=== PATIENT | male | born 1945 | race Caucasian/White ===

== ENCOUNTER → 2017-07-17 | Outpatient (CLI) | payer MEDICARE, OTHER ==
--- NOTE | 2017-07-17 12:15 | Diagnostic Imaging Report ---
Indication: Lower respiratory infection x1 month. PA and lateral chest Heart size and pulmonary vascularity are normal. Lungs are clear. There are no effusions or pneumothoraces. Impression: Negative chest. Dictated by: Dictated on workstation # [id number]
== END ==
LOC: RAD 11:04
PROVIDERS: ATTEND Family Medicine
DX: J22 Unspecified acute lower respiratory infection (principal)
CPT/HCPCS: 71046

== ENCOUNTER → 2019-01-29 | Outpatient (CLI) | payer MEDICARE, OTHER ==
[2019-01-29 10:53] LABS: BILIRUBIN,URINE NEGATIVE (NEGATIVE); CLARITY,URINE CLEAR; COLOR,URINE YELLOW; GLUCOSE, URINE (UA) NEGATIVE (NEGATIVE); KETONES,URINE NEGATIVE (NEGATIVE); LEUKOCYTE ESTERASE ,URINE NEGATIVE (NEGATIVE); NITRITE,URINE NEGATIVE (NEGATIVE); PROTEIN,URINE NEGATIVE (NEGATIVE)
[2019-01-29 10:59] LABS: BACTERIA,URINE NEGATIVE /HPF; WBC,URINE RARE /HPF
== END ==
LOC: LAB 10:08
PROVIDERS: ATTEND Family Medicine
DX: R31.9 Hematuria, unspecified (principal)
CPT/HCPCS: 81000

== ENCOUNTER → 2020-04-11 | Outpatient (CLI) | payer MEDICARE, OTHER ==
[2020-04-11 11:07] LABS: HEMOGLOBIN 15.8 g/dL (13.3-17.7); MEAN PLATELET VOLUME 10.7 fL (9.0-12.2); WHITE BLOOD COUNT 9.7 10^3/uL (4.3-11.0)
[2020-04-11 11:28] LABS: ALANINE AMINOTRANSFERASE 22 U/L (0-55); ALBUMIN 4.4 GM/DL (3.2-4.5); ALKALINE PHOSPHATASE 63 U/L (40-136); BILIRUBIN,TOTAL 0.8 MG/DL (0.1-1.0); BUN/CREATININE RATIO 11; CALCIUM 9.6 MG/DL (8.5-10.1); CARBON DIOXIDE 25 MMOL/L (21-32); CHLORIDE 92 MMOL/L (98-107); CREATININE SERUM 1.13 MG/DL (0.60-1.30); GFR ESTIMATED > 60; GLUCOSE 96 MG/DL (70-105); POTASSIUM 3.9 MMOL/L (3.6-5.0); SODIUM 128 MMOL/L (135-145); TOTAL PROTEIN 7.9 GM/DL (6.4-8.2)
--- NOTE | 2020-04-11 13:43 | Diagnostic Imaging Report ---
INDICATION: Cough and wheezing. Comparison with 07/17/2017. FINDINGS: PA and lateral chest. The lungs are well-aerated with mild air trapping bilaterally. No infiltrates have developed. No pneumothorax. No pleural effusion. The heart is not enlarged. No bony abnormalities. IMPRESSION: Mild hyperaeration noted bilaterally otherwise normal chest. Dictated by: Dictated on workstation # [id number]
== END ==
LOC: RAD 10:44
PROVIDERS: ATTEND Family Medicine
DX: J45.909 Unspecified asthma, uncomplicated (principal)
CPT/HCPCS: 36415; 71046; 80053; 84443; 85027

== ENCOUNTER → 2022-01-09 | Outpatient (CLI) | payer MEDICARE, OTHER ==
--- NOTE | 2022-01-09 19:35 | Diagnostic Imaging Report ---
PROCEDURE: CT neck soft tissue without contrast. TECHNIQUE: Multiple contiguous axial images were obtained through the neck without the use of intravenous contrast. Auto Exposure Controls were utilized during the CT exam to meet ALARA standards for radiation dose reduction. INDICATION: Enlarged lymph node behind left ear. No comparison available. FINDINGS: A metallic marker was placed at the site of the patient's reported palpable abnormality. This is just posterior and inferior to the left external ear. This overlies multiple apparent enlarged intraparotid lymph nodes with the largest measuring 1.5 cm. In addition, however, to the enlarged intraparotid lymph nodes there is also extensive lymphadenopathy demonstrated throughout the neck with bilateral cervical lymphadenopathy demonstrated at level 1, level 2, level 3, level 4 and level 5. The findings are highly suspect for a lymphoproliferative disorder such as lymphoma. The visualized portion of the upper chest additionally demonstrates some prominent superior mediastinal lymph nodes and bilateral axillary lymphadenopathy. As transportation services representative measurements, the largest measured lymph node on the right at the level IIb lymph node measuring 2 cm in length. The largest on the left is a inferior level 5 lymph node measuring 2.1 cm. Large bilateral level 1 A and 1 B submandibular lymph nodes also present. The visualized intracranial contents demonstrate no mass effect. The orbits are unremarkable. There is moderate mucosal thickening in the left maxillary sinus. The mastoids and the middle ears appear clear. The posterior nasopharynx and oropharynx are symmetric. There is no displacement of the parapharyngeal fat planes. Base of the tongue unremarkable. There is no thickening of the epiglottis. The vallecula and piriform sinuses are aerated. There is no abnormal process in the prevertebral retropharyngeal space. The vocal folds appear symmetric. The lung apices are clear. Cervical spine demonstrates normal alignment. There are mild endplate changes but no suspicious marrow replacing lesion. IMPRESSION: 1. Extensive bilateral cervical lymphadenopathy is demonstrated throughout the neck at essentially all the major cervical juliann stations. There additionally appears to be adenopathy in the upper mediastinum and both of the axilla. The findings are highly suspect for a lymphoproliferative disorder such as lymphoma. Metastatic disease felt less likely. 2. Appropriate symmetry of the aerodigestive tract. Dictated by: Dictated on workstation # [id number]
== END ==
LOC: RAD 08:49
PROVIDERS: ATTEND Family Medicine
DX: R59.0 Localized enlarged lymph nodes (principal)
CPT/HCPCS: 70490

== ENCOUNTER → 2022-01-11 | Outpatient (CLI) | payer MEDICARE, OTHER ==
[2022-01-11 11:27] LABS: POTASSIUM 4.1 MMOL/L (3.6-5.0)
[2022-01-11 11:28] LABS: CALCIUM 9.4 MG/DL (8.5-10.1)
[2022-01-11 11:33] LABS: CREATININE SERUM 0.92 MG/DL (0.60-1.30)
== END ==
LOC: LAB 10:39
PROVIDERS: ATTEND Family Medicine
DX: N28.9 Disorder of kidney and ureter, unspecified (principal)
CPT/HCPCS: 36415; 80048

== ENCOUNTER → 2022-01-16 | Outpatient (CLI) | payer MEDICARE, OTHER ==
[~2022-01-16] MED LIST: CATHETER FLUSH 10 ML SYR IV PRN; HOLD METFORMIN - RECEIVED CONTRAST 20 ML VIAL IV SCH; IOHEXOL 350 MG/ML 100 ML (OMNIPAQUE 350) VIAL IV ONE; NS 100 ML (IVPB) BAG IV ONE
--- NOTE | 2022-01-16 09:59 | Diagnostic Imaging Report ---
EXAMINATION: CT chest, abdomen and pelvis with intravenous contrast. TECHNIQUE: Multiple contiguous axial images were obtained through the chest, abdomen and pelvis after the uneventful administration of intravenous contrast. All CT scans use one or more of the following dose optimizing techniques: automated exposure control, MA and/or KvP adjustment based on patient size and exam type or iterative reconstruction. HISTORY: Lymphadenopathy in the neck. Concern for malignancy. Prior left inguinal hernia repair. COMPARISON: None available. FINDINGS: CT CHEST: The heart size is within normal limits. No pericardial effusion is present. There is calcified aortic and coronary atherosclerotic plaque without aneurysm. Lymphadenopathy is seen in the bilateral axilla, bilateral hilum, and mediastinum. A marker lymph node in the right axilla measures 3.0 x 2.6 cm and within the left axilla 4.2 x 2.3 cm. A marker lymph node in the right paratracheal station measures 1.9 x 1.6 cm. Marker nodule in the right hilum measures 3.9 x 2.3 cm and in the left measures 2.1 x 2.1 cm. Nodules are seen in the right upper lobe measuring up to 0.8 cm. These are located along the fissure and are most suggestive of intrapulmonary lymph nodes. There are no focal areas of consolidation. No central endobronchial obstructing lesions are identified. There are no pleural effusions or pneumothorax. Age-indeterminate height loss is visualized in the T5-T8 vertebral bodies. There is also height loss in the superior endplate of T12. Chronic healed rib fractures are seen in the right in the 9th and 10th right ribs. CT ABDOMEN AND PELVIS: Conglomeration of lymphadenopathy is seen throughout the retroperitoneum. Lymphadenopathy is also seen in the upper abdomen, with the largest lymph node in the umair hepatis measuring 4.0 x 3.2 cm. Inguinal lymphadenopathy is also noted. The liver, spleen, pancreas, adrenal glands, and kidneys have a normal appearance. Gallstone is visualized in the neck of the gallbladder. No CT evidence of acute cholecystitis. The bowel loops are nondilated. The appendix is visualized in the right lower quadrant and has a normal appearance. There is no free fluid or free air. The osseous structures demonstrate no acute abnormalities. There is calcified aortic and iliac atherosclerotic plaque without aneurysm. Ureters and bladder have a normal appearance. IMPRESSION: 1. Pathologically enlarged lymphadenopathy in the chest, abdomen and pelvis. Findings are concerning for malignancy such as lymphoma. Recommend correlation with patient history and follow-up as indicated. 2. Age-indeterminate height loss in the T5-T8 vertebral bodies and T12 vertebral body. These are favored to be chronic. Recommend correlation with patient symptoms and physical exam. If indicated, MRI of the thoracic spine may be considered to further evaluate. 3. Cholelithiasis without CT evidence of acute cholecystitis. Dictated by: Dictated on workstation # [id number]
== END ==
LOC: RAD 08:42
PROVIDERS: ATTEND Family Medicine
DX: R59.0 Localized enlarged lymph nodes (principal); K80.20 Calculus of gallbladder without cholecystitis without obstruction
CPT/HCPCS: 71260; 74177

== ENCOUNTER → 2022-01-22 | Day surgery (SDC) | payer MEDICARE, OTHER ==
[~2022-01-22] MED LIST changes: -CATHETER FLUSH 10 ML SYR IV PRN; -HOLD METFORMIN - RECEIVED CONTRAST 20 ML VIAL IV SCH; -IOHEXOL 350 MG/ML 100 ML (OMNIPAQUE 350) VIAL IV ONE; +LIDOCAINE 1% INJ 30 ML (XYLOCAINE) VIAL INJ ONE; -NS 100 ML (IVPB) BAG IV ONE
--- NOTE | 2022-01-22 10:14 | Diagnostic Imaging Report ---
INDICATION: Lymphadenopathy. Patient presents for ultrasound-guided biopsy. Patient brought to the procedure and placed on table in the supine position. Ultrasound imaging of the left axilla was performed to evaluate appropriate entry site. Left axilla was then prepped and draped in usual sterile fashion. Small amount of 1% lidocaine was utilized for local anesthesia. A total of 5 core biopsies were obtained of an enlarged left axillary lymph node utilizing 14-gauge Achieve needle. Hemostasis was obtained using manual compression. Patient tolerated the procedure well and left the department in stable condition. IMPRESSION: Successful ultrasound guided core biopsy of enlarged left axillary lymph node. Pathology results are currently pending. Dictated by: Dictated on workstation # [id number]
== END ==
LOC: RAD 09:00
PROVIDERS: ATTEND Family Medicine
DX: C83.04 Small cell B-cell lymphoma, lymph nodes of axilla and upper limb (principal)
CPT/HCPCS: 76942; 88184; 88185; 88307; 88341; 88342; 88360

== ENCOUNTER → 2022-01-31 | Outpatient (CLI) | payer MEDICARE ==
[~2022-01-31] VITALS: Ht 177.8 cm; Wt 81.8 kg
[~2022-01-31] MED LIST changes: +ACHD5005 PO; +BENR30SY SQ; +BUDE10.2 IH; +HYDR12.56 PO; -LIDOCAINE 1% INJ 30 ML (XYLOCAINE) VIAL INJ ONE; +METO100T12 PO; +MONT10TA21 PO; +RT-ALBUINH INH; +TMSL.4C PO
== END | disposition home or self-care (01) ==
LOC: PREOP 05:35
PROVIDERS: ATTEND Surgery
DX: Z01.818 Encounter for other preprocedural examination (principal)

== ENCOUNTER 2022-02-01 10:20 | Day surgery (SDC) | payer MEDICARE, OTHER ==
[2022-02-01] VITALS (11 sets, daily range): BP systolic 105–170; BP diastolic 66–91
[~2022-02-01] VITALS: Ht 177.8 cm; Wt 81.8 kg
[~2022-02-01 10:20] MED LIST changes: -ACHD5005 PO
[2022-02-01] MEDS ORDERED: ceFAZolin INJECTION 2,000 MG in NS (IVPB) 50 ML IV ONE (10:45)
--- NOTE | 2022-02-01 11:25 | Progress Note-Pre Operative ---
Pre-Operative Progress Note Date of Available H&P: Jan 29, 2022 Date H&P Reviewed: Feb 01, 2022 Time H&P Reviewed: 11:25 History & Physical: H&P Reviewed, Patient Examed, No changes noted Pre-Operative Diagnosis: b/l inguinal and axillary lymphadenopathy VIRGINIA BENDER DO Feb 01, 2022 11:25
[2022-02-01] MEDS ORDERED: LACTATED RINGERS 1,000 ML IV PRN (11:30)
[2022-02-01] MEDS ORDERED: LIDOCAINE/EPI 1%-1:100,000 (XYLOCAINE) 30ML ONE (12:30)
[2022-02-01] MEDS ORDERED: proPOfol 200 MG/20 ML (DIPRIVAN) VIAL IV ONE (12:32)
[2022-02-01] MEDS ORDERED: ONDANSETRON 4 MG/2 ML (SDV) Z0FRAN ONE (12:32)
[2022-02-01] MEDS ORDERED: fentaNYL INJ 100 MCG/2 ML AMP ONE (12:32)
[2022-02-01] MEDS ORDERED: SEVOFLURANE (ULTANE) 15 ML INHAL SOLN ONE ×2 (12:32→13:11)
[2022-02-01] MEDS ORDERED: LIDOCAINE PF 2% 5 ML (XYLOCAINE) VIAL ONE (12:32)
[2022-02-01] MEDS ORDERED: MIDAZOLAM 2 MG/2 ML (VERSED) VIAL ONE (12:32)
[2022-02-01] MEDS ORDERED: BUP/EPI 0.25% 1:200,000 (MARCAINE) 30 ML VIAL ONE (12:37)
[2022-02-01] MEDS ORDERED: BUP/EPI 0.25% 1:200,000 (MARCAINE) 30 ML VIAL INJ ONE (13:12)
[2022-02-01] MEDS ORDERED: ACHD5005 PO (13:23)
--- NOTE | 2022-02-01 13:24 | Discharge Inst-Simple/Standard ---
Discharge Inst-Standard Discharge Medications New, Converted or Re-Newed RX: Transmitted to Pharmacy Patient Instructions/Follow Up Plan of Care/Instructions/FU: 2 weeks Yair Activity as Tolerated: No Discharge Diet: Regular Diet Other Inst to Patient Follow up Appt: Make appointment for 2 week. Instructions: No lifting greater than 10 pounds. No strenuous activity. May shower in 24 hours, no tub bath or soaking. Use incentive spirometer at home as directed. No Smoking Skin/Wound Care: You have special glue over your incision that will fall off on it's own. Symptoms to Report: Appetite Changes, Extremity Discoloration, Numbness/Tingling, Swelling Increased, Bleeding Excessive, Eyesight Changes, Pain Increased, Urine Color Change, Constipation(Persistent), Fever over 101 degree F, Pain/Pressure in chest, Urinating Difficulty, Cough Up/Vomit Blood, Heart Beat Irreg/Pounding, Pain/Pressure in jaw, Vaginal Bleeding Increase, Cramps in feet or legs, Lightheadedness, Pain/Pressure in shoulder, Diarrhea(Persistent), Memory Changes Suddenly, Questions/Concerns, Weight gain consecutive days, Dizziness/Fainting, Nausea/Vomiting, Shortness of Breath, Weight gain over 2 pounds If questions or concerns contact your physician Or seek help at emergency department. VIRGINIA BENDER DO Feb 01, 2022 13:24
[2022-02-01] MEDS ORDERED: ONDANSETRON 4 MG/2 ML (SDV) Z0FRAN IVP PRN (13:30)
[2022-02-01] MEDS ORDERED: fentaNYL INJ 100 MCG/2 ML AMP IVP ONE (13:30)
--- NOTE | 2022-02-01 13:30 | Anesthesia-General Post-Op ---
General Patient Condition Mental Status/LOC: Same as Preop Cardiovascular: Satisfactory Nausea/Vomiting: Absent Respiratory: Satisfactory Pain: Controlled Complications: Absent Post Op Complications Complications None Follow Up Care/Instructions Patient Instructions None needed. Anesthesia/Patient Condition Patient Condition Patient is doing well, no complaints, stable vital signs, no apparent adverse anesthesia problems. No complications reported per nursing. OMAYRA STEVENS CRNA Feb 01, 2022 13:30
--- NOTE | 2022-02-01 23:10 | OPERATIVE REPORT ---
DATE OF SERVICE: 02/01/2022 PREOPERATIVE DIAGNOSIS: Bilateral inguinal and axillary lymphadenopathy. POSTOPERATIVE DIAGNOSIS: Bilateral inguinal and axillary lymphadenopathy. PROCEDURE: Excision of left groin mass. SURGEON: Virginia Mazariegos DO ANESTHESIA: General. ESTIMATED BLOOD LOSS: Minimal. COMPLICATIONS: None. INDICATIONS: The patient is a 76-year-old male with bilateral inguinal and axillary lymphadenopathy. Large palpable mass noted in the left groin, which he was discussed excising for pathology. He understands risks and benefits and wishes to proceed. Consent was signed and in chart. DESCRIPTION OF PROCEDURE: The patient was taken to the operating suite, prepped and draped in sterile fashion. Timeout was performed. Local anesthetic was infiltrated above the palpable mass. A 15 blade scalpel was used to make a skin incision. Cautery was used to dissect down through subcutaneous tissues down through Camper's and Wayne's fascia. A mass was encountered. This was then both bluntly and cautery dissected around until completely removed. This was sent for fresh specimen. Wound was then irrigated and hemostasis was achieved. Wayne's was then closed using 3-0 Vicryl close the subcutaneous tissue and 4-0 Monocryl was used to close the skin. The area was then washed and dried and skin Affix was placed on the incision. The patient tolerated the procedure well without any complications taken to recovery room in stable condition. Job ID: [id number] DocumentID: [id number] Dictated Date: 02/01/2022 21:26:25 Engineering Production Worker Date: 02/01/2022 23:08:00 Dictated By: VIRGINIA MAZARIEGOS DO
== END 2022-02-01 15:23 ==
LOC: SDC 10:20
PROVIDERS: ATTEND Surgery
DX: C85.85 Other specified types of non-Hodgkin lymphoma, lymph nodes of inguinal region and lower limb (principal); R59.0 Localized enlarged lymph nodes; Z87.891 Personal history of nicotine dependence
CPT/HCPCS: 87081

== ENCOUNTER → 2022-04-02 | Outpatient (CLI) | payer MEDICARE, OTHER ==
[~2022-04-02] MED LIST changes: +ACHD5005 PO
--- NOTE | 2022-04-02 11:56 | Diagnostic Imaging Report ---
INDICATION: Cough and congestion. COMPARISON: 04/11/2020 FINDINGS: Frontal and lateral radiographic views of the chest were obtained. Evaluation is degraded by over penetration, but lungs are grossly clear. There is no large effusion or pneumothorax. Cardiac silhouette and pulmonary vasculature are within normal limits. Osseous structures show no gross acute abnormalities. IMPRESSION:. No acute cardiopulmonary process with limitations as above. Dictated by: Dictated on workstation # [id number]
== END ==
LOC: RAD 10:50
PROVIDERS: ATTEND Family Medicine
DX: R05.9 Cough, unspecified (principal); R09.81 Nasal congestion; R59.0 Localized enlarged lymph nodes
CPT/HCPCS: 71046

== ENCOUNTER 2022-04-09 10:23 | Emergency (ER) | payer MEDICARE, OTHER ==
[~2022-04-09] VITALS: Ht 177 cm; Wt 81.0 kg
--- NOTE | 2022-04-09 10:59 | ED General ---
General Chief Complaint: - Reproductive Stated Complaint: BLADDER ISSUES Nursing Triage Note: Pt reports R sided flank pain and decreased urination. Pt also tested positive for COVID 1 week ago Source of Information: Patient Exam Limitations: No Limitations History of Present Illness Date Seen by Provider: Apr 09, 2022 Time Seen by Provider: 10:59 Initial Comments Patient is a 75yo male who presents to the ER with a complaint of decreased urinary out put over the last 24 hours. He states he was diagnosed with Covid a week ago and has been feeling "really bad", He states that he has had decreased appetite, and overall oral intake the last week. Dry non productive cough. A little light headed with position change but not severe. He attributes this to his age. No high fevers. no diarrhea. He's had some left groin discomfort. He was diagnosed with Lymphoma in January of 2022 and is under the care of Dr Ngo. He states he was on an oral chemo pill for a while and has been trying to get started on an IV chemo but his WBC has been low. He went in to see Dr Onofre this morning due to his "trouble urinating" and Dr Onofre sent him in to us for further eval. Timing/Duration: 3-4 Days Severity: Mild Associated Systoms: Loss of Appetite Allergies and Home Medications Allergies Coded Allergies: No Known Drug Allergies (Unverified , 02/01/22) Patient Home Medication List Home Medication List Reviewed: Yes Albuterol Sulfate (Ventolin Hfa) 1 Puff Puff, 2 PUFF INH Q4H, (Reported) Entered as Reported by: CLAIR RGEGG on 01/31/22 1057 Benralizumab (Fasenra) 30 Mg/Ml Syringe, 30 MG SQ Q8WK, (Reported) Entered as Reported by: CLAIR GREGG on 01/31/22 1057 Budesonide/Formoterol Fumarate (Symbicort 160-4.5 Mcg Inhaler) 160 Mcg-4.5 Mcg/Actuation Hfa.aer.ad, 2 PUFF IH BID, (Reported) Entered as Reported by: CLAIR GREGG on 01/31/22 1057 Hydrochlorothiazide (Hydrochlorothiazide) 12.5 Mg Tablet, 12.5 MG PO DAILY, ( Reported) Entered as Reported by: CLAIR GREGG on 01/31/22 1057 Hydrocodone/Acetaminophen (Hydrocodone-Acetamin 5-325 mg) 5 Mg-325 Mg Tablet, 1 EACH PO Q4H PRN for PAIN-MODERATE (5-7) Prescribed by: VIRGINIA BENDER on 02/01/22 1324 Metoprolol Tartrate (Metoprolol Tartrate) 100 Mg Tablet, 100 MG PO DAILY, (Reported) Entered as Reported by: CLAIR GREGG on 01/31/22 105 Montelukast Sodium (Singulair) 10 Mg Tablet, 10 MG PO DAILY, (Reported) Entered as Reported by: CLAIR GREGG on 01/31/22 105 Tamsulosin HCl (Flomax) 0.4 Mg Cap, 0.4 MG PO DAILY, (Reported) Entered as Reported by: CLAIR GREGG on 01/31/22 105 Review of Systems Review of Systems Constitutional: see HPI EENTM: no symptoms reported Respiratory: cough; No phlegm Cardiovascular: no symptoms reported Gastrointestinal: other (left groin pain) Genitourinary: decreased output Musculoskeletal: no symptoms reported Skin: no symptoms reported Psychiatric/Neurological: No Symptoms Reported All Other Systems Reviewed Negative Unless Noted: Yes Past Elcwrpm-Iemske-Hxkdca Hx Immunizations Up To Date First/Initial COVID19 Vaccinat: 2020 Second COVID19 Vaccination Jhonny: 2020 Third COVID19 Vaccination Date: 2021 Seasonal Allergies Seasonal Allergies: Yes Past Medical History Surgeries: Yes (HERNIA, "STOMACH REPAIR"FOR BLEEDING) Respiratory: Yes Asthma Currently Using CPAP: No Currently Using BIPAP: No Cardiac: Yes Hypertension Neurological: No Genitourinary: Yes Prostate Problems Gastrointestinal: No Musculoskeletal: Yes Arthritis Endocrine: No HEENT: Yes (READERS) Cancer: No (ENLARGED LYMPH NODE) Psychosocial: No Integumentary: No Blood Disorders: No Physical Exam Vital Signs Vital Signs - First Documented 04/09/22 04/09/22 10:40 10:45 Temp 37.3 Pulse 112 Resp 20 B/P (MAP) 136/90 (105) Pulse Ox 96 O2 Delivery Room Air Capillary Refill : Less Than 3 Seconds Height, Weight, BMI Height: '" Weight: lbs. oz. kg; 25.00 BMI Method: General Appearance: No Apparent Distress, WD/WN Eyes: Bilateral Eye Normal Inspection, Bilateral Eye PERRL, Bilateral Eye EOMI HEENT: Other (+ upper cervical lymphadenopathy) Neck: Normal Inspection Respiratory: Lungs Clear, Normal Breath Sounds, No Accessory Muscle Use, No Respiratory Distress Cardiovascular: Regular Rate, Rhythm, Tachycardia (110 HR) Gastrointestinal: Normal Bowel Sounds, Soft, Other (large tender left groin node, no erythena/fluctuance) Extremity: Normal Capillary Refill, Normal Range of Motion, Non Tender, No Calf Tenderness, No Pedal Edema Neurologic/Psychiatric: Alert, Oriented x3, No Motor/Sensory Deficits, Normal Mood/Affect Skin: Normal Color, Warm/Dry Progress/Results/Core Measures Suspected Sepsis SIRS Temperature: Pulse: 112 Respiratory Rate: 20 Laboratory Tests 04/09/22 10:50: White Blood Count 1.8L Blood Pressure 136 /90 Mean: 105 Laboratory Tests 04/09/22 10:50: Creatinine 1.15, Platelet Count 137 Results/Orders Lab Results Laboratory Tests Test 04/09/22 10:50 04/09/22 14:00 Range/Units White Blood Count 1.8 L 4.3-11.0 10^3/uL Red Blood Count 2.79 L 4.30-5.52 10^6/uL Hemoglobin 10.7 L 13.3-17.7 g/dL Hematocrit 29 L 40-54 % Mean Corpuscular Volume 105 H 80-99 fL Mean Corpuscular Hemoglobin 38 H 25-34 pg Mean Corpuscular Hemoglobin Concent 37 H 32-36 g/dL Red Cell Distribution Width 13.4 10.0-14.5 % Platelet Count 137 130-400 10^3/uL Mean Platelet Volume 9.4 9.0-12.2 fL Immature Granulocyte % (Auto) 1 % Neutrophils (%) (Auto) 56 42-75 % Lymphocytes (%) (Auto) 35 12-44 % Monocytes (%) (Auto) 8 0-12 % Eosinophils (%) (Auto) 0 0-10 % Basophils (%) (Auto) 1 0-10 % Neutrophils # (Auto) 1.0 L 1.8-7.8 10^3/uL Lymphocytes # (Auto) 0.6 L 1.0-4.0 10^3/uL Monocytes # (Auto) 0.1 0.0-1.0 10^3/uL Eosinophils # (Auto) 0.0 0.0-0.3 10^3/uL Basophils # (Auto) 0.0 0.0-0.1 10^3/uL Immature Granulocyte # (Auto) 0.0 0.0-0.1 10^3/uL Sodium Level 127 L 135-145 MMOL/L Potassium Level 4.0 3.6-5.0 MMOL/L Chloride Level 91 L 98-107 MMOL/L Carbon Dioxide Level 25 21-32 MMOL/L Anion Gap 11 5-14 MMOL/L Blood Urea Nitrogen 16 7-18 MG/DL Creatinine 1.15 0.60-1.30 MG/DL Estimat Glomerular Filtration Rate 66 BUN/Creatinine Ratio 14 Glucose Level 119 H 70-105 MG/DL Calcium Level 9.4 8.5-10.1 MG/DL Smear Scan YES Urine Color YELLOW Urine Clarity CLEAR Urine pH 7.0 5-9 Urine Specific [place] 1.015 L 1.016-1.022 Urine Protein 1+ H NEGATIVE Urine Glucose (UA) NEGATIVE NEGATIVE Urine Ketones TRACE H NEGATIVE Urine Nitrite NEGATIVE NEGATIVE Urine Bilirubin NEGATIVE NEGATIVE Urine Urobilinogen 2.0 < = 1.0 MG/DL Urine Leukocyte Esterase NEGATIVE NEGATIVE Urine RBC (Auto) TRACE-I H NEGATIVE Urine RBC 2-5 H /HPF Urine WBC RARE /HPF Urine Squamous Epithelial Cells NONE /HPF Urine Renal Epithelial Cells NONE /HPF Urine Crystals NONE /LPF Urine Bacteria TRACE /HPF Urine Casts PRESENT /LPF Urine Hyaline Casts 2-5 H /LPF Urine Mucus MODERATE H /LPF Urine Culture Indicated NO My Orders Orders - SOL UP MD Ed Iv/Invasive Line Start (04/09/22 11:11) Cbc With Automated Diff (04/09/22 11:11) Basic Metabolic Panel (04/09/22 11:11) Ua Culture If Indicated (04/09/22 11:11) Ns Iv 1000 Ml (Sodium Chloride 0.9%) (04/09/22 11:11) Ns Iv 1000 Ml (Sodium Chloride 0.9%) (04/09/22 12:10) Vital Signs/I&O 04/09/22 04/09/22 10:40 10:45 Temp 37.3 Pulse 112 Resp 20 B/P (MAP) 136/90 (105) Pulse Ox 96 O2 Delivery Room Air Room Air Capillary Refill : Less Than 3 Seconds Blood Pressure Mean: 105 Progress Note : Time: 14:39 Progress Note Patient seen and evaluated by me, 76-year-old with lymphoma and concerns for dehydration, urinary tract infection/urinary retention. Evaluation today includes a physical exam, CBC, basic metabolic panel and urinalysis. Patient's physical exam is remarkable for dry mucous membranes, slight tachycardia with a heart rate of 111 at presentation and a good blood pressure. Lungs are clear, heart is regular albeit tachycardic. Abdomen is soft, no suprapubic tenderness. Normal bowel sounds. Moves all extremities well, no lower extremity edema. Fair skin turgor. Differential diagnosis based on history and physical includes dehydration, electrolyte disturbance, urinary tract infection. Patient is treated in the emergency department with 2 L of normal saline. Labs reviewed, CBC shows leukopenia which is chronic for the patient secondary to his lymphoma. Mild anemia. Normal platelets. Basic metabolic panel shows a mild hyponatremia with normal renal function. Patient was finally able to produce a urine specimen after 2 L of normal saline, this urine is reviewed, microscopic hematuria noted with no evidence of infection. Patient began to complain of a little back discomfort while getting his IV fluids he states this is chronic. He was given Tylenol at discharge. He does have follow-up arranged with Dr. Triplett tomorrow with a possible chemoinfusion however I do not think that it would be [facility] to do that as he is just coming off of COVMO. Patient states that he will contact his provider. No clinical or objective findings to warrant further studies or inpatient admission. All questions are sought and answered. Patient is stable for discharge Departure Impression Primary Impression: Dehydration Disposition: 01 HOME, SELF-CARE Condition: Improved Departure-Patient Inst. Decision time for Depature: 14:38 Referrals: NAA ONOFRE DO (PCP/Family) Primary Care Physician Patient Instructions: Dehydration, Adult ED Add. Discharge Instructions: Drink plenty of fluids to stay well hydrated. Your urine should be a clear yellow. Tylenol extra strength, 2 tablets every 6 hours as needed for body aches. Please try and keep your appointment with Dr Ngo tomorrow.\\ If you have any new, concerning or emergent complaints, please come back to the ER for re-evaluation. Copy Copies To 1: NAA ONOFRE DO Copies To 2: ESPERANZA NGO KATHRYN M MD Apr 09, 2022 10:59
[2022-04-09] MEDS ORDERED: NS IV 1000 ML 1,000 ML IV STA ×2 (11:11→12:10)
[2022-04-09 11:20] LABS: BASOPHILS % (AUTO) 1 % (0-10); EOSINOPHILS % (AUTO) 0 % (0-10); HEMATOCRIT 29 % (40-54); HEMOGLOBIN 10.7 g/dL (13.3-17.7); LYMPHOCYTES # (AUTO) 0.6 10^3/uL (1.0-4.0); LYMPHOCYTES % (AUTO) 35 % (12-44); MEAN CORPUSCULAR HEMOGLOBIN 38 pg (25-34); MEAN CORPUSCULAR HGB CONC 37 g/dL (32-36); MEAN CORPUSCULAR VOLUME 105 fL (80-99); MEAN PLATELET VOLUME 9.4 fL (9.0-12.2); MONOCYTES # (AUTO) 0.1 10^3/uL (0.0-1.0); MONOCYTES % (AUTO) 8 % (0-12); NEUTROPHILS % (AUTO) 56 % (42-75); PLATELET COUNT 137 10^3/uL (130-400); WHITE BLOOD COUNT 1.8 10^3/uL (4.3-11.0)
[2022-04-09 11:26] LABS: CALCIUM 9.4 MG/DL (8.5-10.1)
[2022-04-09 11:28] LABS: SMEAR SCAN COMMENT YES
[2022-04-09 11:30] LABS: CREATININE SERUM 1.15 MG/DL (0.60-1.30)
[2022-04-09 14:08] LABS: BILIRUBIN,URINE NEGATIVE (NEGATIVE); CLARITY,URINE CLEAR; COLOR,URINE YELLOW; GLUCOSE, URINE (UA) NEGATIVE (NEGATIVE); KETONES,URINE TRACE (NEGATIVE); LEUKOCYTE ESTERASE ,URINE NEGATIVE (NEGATIVE); NITRITE,URINE NEGATIVE (NEGATIVE); PROTEIN,URINE 1+ (NEGATIVE)
[2022-04-09 14:31] LABS: BACTERIA,URINE TRACE /HPF; WBC,URINE RARE /HPF
[2022-04-09] MEDS ORDERED: ACETAMINOPHEN 500 MG TAB (TYLENOL) PO ONE (14:45)
[2022-04-09 14:54] VITALS: BP 124/90
== END 2022-04-09 14:54 | disposition home or self-care (01) ==
LOC: EDUNIT# 10:23 → ER 10:25
DX: E86.0 Dehydration (principal); E87.1 Hypo-osmolality and hyponatremia; D72.819 Decreased white blood cell count, unspecified; D64.9 Anemia, unspecified; C85.90 Non-Hodgkin lymphoma, unspecified, unspecified site; R31.29 Other microscopic hematuria; Z79.899 Other long term (current) drug therapy; Z87.19 Personal history of other diseases of the digestive system; Z98.890 Other specified postprocedural states; Z86.16 Personal history of COVID-19
CPT/HCPCS: 36415; 80048; 81000; 85025; 99283

== ENCOUNTER → 2022-10-16 | Outpatient (CLI) | payer MEDICARE, OTHER ==
[~2022-10-16] MED LIST changes: +MONT-47 PO; -MONT10TA21 PO
--- NOTE | 2022-10-16 17:47 | Diagnostic Imaging Report ---
EXAMINATION: Lumbosacral spine 2 or 3 views HISTORY: Back pain COMPARISON: None available. FINDINGS: The alignment is normal. There is mild disc height loss most pronounced at L4-L5 and L5-S1. No fracture is seen. There are anterior syndesmophytes. The aorta is calcified. IMPRESSION: 1. Mild disc height loss at L4-L5 and L5-S1. Dictated by: Dictated on workstation # [id number]
== END ==
LOC: RAD 13:23
PROVIDERS: ATTEND Family Medicine
DX: M51.36 Other intervertebral disc degeneration, lumbar region (principal); M51.37 Other intervertebral disc degeneration, lumbosacral region
CPT/HCPCS: 72100